=== PATIENT | female | born 1975 | race Caucasian/White ===

== ENCOUNTER 2020-09-03 19:18 | Inpatient (IN) ==
[2020-09-03] MEDS ORDERED: carBAMazepine 200 MG TABLET PO SCH ×2 (20:45→21:00)
[2020-09-03 20:51] LABS: Appearance Urine Clear (Clear); Bacteria Urine Automated Negative (Negative); Bilirubin Urine Negative (Negative); Blood Urine Trace (Negative); Cast Urine Automated 0 /lpf (0-5); Color Urine Yellow; Epithelial Cell Urine Auto >30 /lpf (0-5); Glucose Urine UA Negative (Negative); Ketones Urine Trace (Negative); Leukocyte Esterase Urine 1+ (Negative); Nitrite Urine Negative (Negative); Protein Urine Negative (Negative); RBC Urine Automated 0-4 /hpf (0-4); Urobilinogen Urine Negative (Negative)
[2020-09-03 20:51] LABS: Basophils # (auto) 0.02 K/uL (0-0.2); Basophils % (auto) 0.4 %; Hematocrit (blood only) 39.6 % (37-47); Immature Granulocytes # (auto) 0.01 K/uL (0.00-0.02); Immature Granulocytes % (auto) 0.2 %; Lymphocytes # (auto) 1.85 K/uL (1.2-3.4); Lymphocytes % (auto) 36.8 %; Mean Corpuscular Hgb Conc 35.4 g/dL (32-36); Mean Corpuscular Volume 90.4 fL (80-100); Mean Platelet Volume 10.2 fL (7.4-10.4); Monocytes # (auto) 0.49 K/uL (0.11-0.59); Monocytes % (auto) 9.7 %; Neutrophils # (auto) 2.56 K/uL (1.4-6.5); Neutrophils % (auto) 50.9 %; Platelet Count 311 K/uL (130-400); RDW Coefficient of Variation 12.6 % (11.5-14.5); RDW Standard Deviation 42.2 fL (36.4-46.3); Red Blood Count 4.38 M/uL (4.2-5.4); White Blood Count 5.03 K/uL (4.8-10.8)
[2020-09-03] MEDS ORDERED: tiZANidine HCL 4 MG TABLET PO SCH (21:00)
[2020-09-03] MEDS: CITALOPRAM 40 MG TAB PO SCH (21:04)
[2020-09-03] MEDS: BACLOFEN 10 MG TAB PO SCH (21:04)
[2020-09-03 21:07] LABS: Albumin Level 4.5 gm/dl (3.4-5.0); BUN Creatinine Ratio 15.6 (10-20); Calcium 8.6 mg/dl (8.5-10.1); Creatinine Clr Calc Pharmacy 97.7 ml/min; Est GFR (African American) 126.4; Est GFR (Non-African American) 109.1; Potassium 3.7 mmol/L (3.5-5.1)
[2020-09-03 21:09] LABS: Acetaminophen < 2 ug/ml (10-30); Salicylate < 1.7 mg/dl (2.8-20)
[2020-09-03 21:09] LABS: Amphetamines+Metham, Urine Neg (Neg); Barbiturates, Urine Neg (Neg); Benzodiazepine, Urine Neg (Neg); Cocaine, Urine Neg (Neg); MDMA (Ecstacy), Urine Neg (Neg); Methadone, Urine Neg (Neg); Opiate, Urine Neg (Neg); Phencyclidine, Urine Neg (Neg)
[2020-09-03 21:17] LABS: Albumin Globulin Ratio 1.4 (0.9-2); Bilirubin,Total 0.3 mg/dl (0.2-1); Globulin 3.1 gm/dl (2.5-4.0); Thyroid Stimulating Hormone 1.66 uIu/ml (0.300-4.500); Total Protein 7.6 gm/dl (6.4-8.2)
[2020-09-03] MEDS ORDERED: carBAMazepine 200 MG TABLET PO ONE (21:21)
[2020-09-03 21:23] LABS: Pregnancy Test, Serum Negative (Negative)
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
[2020-09-03 23:32] LABS: Influenza A virus by PCR Negative (Neg); Influenza B virus by PCR Negative (Neg); RSV by PCR Negative (Neg); SARS CoV2 RNA(COVID-19) InHosp NEGATIVE (Negative)
[2020-09-04] MEDS: BACLOFEN 10 MG TAB PO SCH ×2 (05:22→20:32)
--- NOTE | 2020-09-04 08:38 | Emergency Department Note ---
ED Visit Note Patient signed out to me at change of shift by Dr. Nava. Patient with anxiety, paranoia, and delusions. Patient here voluntarily. Patient denies SI and HI. Please see his note for additional details. Patient does have a history of MS. Referrals have been made, disposition is pending. Patient signed out to Dr. Bloom in the morning. .
[2020-09-04] MEDS ORDERED: MULTIVITAMIN TAB PO SCH (09:00)
[2020-09-04] MEDS ORDERED: CYANOCOBALAMIN (VITAMIN B-12) 100 MCG TABLET PO SCH (09:00)
[2020-09-04] MEDS ORDERED: CHOLECALCIFEROL 1,000 UNITS 25 MCG TAB PO SCH (09:00)
[2020-09-04] MEDS ORDERED: NON-FORMULARY MEDICATION (Cholecalciferol (Vitamin D3) [Vitamin D3] 25 mcg (1,000 unit) Ta PO SCH (09:00)
[2020-09-04] MEDS ORDERED: NON-FORMULARY MEDICATION (Cyanocobalamin (Vitamin B-12) [Vitamin B-12] 50 mcg Tablet) PO SCH (09:00)
[2020-09-04] MEDS ORDERED: carBAMazepine 200 MG TABLET PO SCH ×3 (09:00→21:00)
[2020-09-04] MEDS: CITALOPRAM 40 MG TAB PO SCH (11:44)
--- NOTE | 2020-09-04 14:35 | Emergency Department Note ---
ED Visit Note I received this patient in signout at the change of shift from Dr. Ceballos, pending final disposition. The patient is currently voluntary for admission due to anxiety, paranoia and delusions. She does have a history of MS. Several referrals are pending. The case has been signed out at the change of shift to Dr. Michel awaiting final disposition. .
--- NOTE | 2020-09-04 14:39 | Emergency Department Note ---
ED Visit Note Did receive signout from Dr. Bloom patient is pending [facility] review. Patient does have a history of MS, anxiety and paranoia with no SI or HI. Patient was ordered home dose baclofen did receive first dose of methylprednisolone. Patient was accepted to [facility] for inpatient psychiatric treatment. .
[2020-09-04] MEDS ORDERED: BACLOFEN 10 MG TAB PO STA (16:10)
[2020-09-04] MEDS: MOUTHWASH PO SCH ×2 (16:16)
[2020-09-04] MEDS ORDERED: hydrOXYzine HCl 25 MG TAB PO PRN ×2 (16:32)
[2020-09-04] MEDS ORDERED: ALUMINUM/MAGNESIUM SUSP 30 ML UDC PO PRN (16:32)
[2020-09-04] MEDS ORDERED: BISMUTH SUBSALICYLATE LIQD 236 ML PO PRN (16:32)
[2020-09-04] MEDS ORDERED: ACETAMINOPHEN 325 MG TAB PO PRN (16:32)
[2020-09-04] MEDS ORDERED: MAGNESIUM HYDROXIDE SUSP 30 ML UDC PO PRN (16:32)
[2020-09-04] MEDS ORDERED: SODIUM CHLORIDE 0.65% NA SOLN 45 ML (OCEAN) PRN (16:32)
[2020-09-04] MEDS ORDERED: MOUTHWASH PO SCH (17:00)
[2020-09-04] MEDS: carBAMazepine 200 MG TABLET PO SCH (19:47)
[2020-09-04] MEDS: CITALOPRAM 20 MG TAB PO SCH (20:31)
[2020-09-04] MEDS: tiZANidine HCL 4 MG TABLET PO SCH (20:33)
[2020-09-04] MEDS: BENZOCAINE 20% (ORAJEL) 11.9 GM TUBE MT PRN (20:35)
[2020-09-04] MEDS: Magic Swizzle w/Glycerin 240mL MT SCH (20:46)
[2020-09-05] MEDS: BENZOCAINE 20% (ORAJEL) 11.9 GM TUBE MT PRN ×2 (06:50→14:06)
[2020-09-05] MEDS: carBAMazepine 200 MG TABLET PO SCH ×3 (07:47→17:28)
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
[2020-09-05] MEDS: BACLOFEN 10 MG TAB PO SCH ×3 (07:51→19:55)
[2020-09-05] MEDS: CITALOPRAM 20 MG TAB PO SCH ×2 (07:51→19:55)
[2020-09-05] MEDS: CYANOCOBALAMIN (VITAMIN B-12) 100 MCG TABLET PO SCH (07:52)
[2020-09-05] MEDS: MULTIVITAMIN TAB PO SCH (07:52)
[2020-09-05] MEDS: CHOLECALCIFEROL 1,000 UNITS 25 MCG TAB PO SCH (07:53)
[2020-09-05] MEDS: Magic Swizzle w/Glycerin 240mL MT SCH ×4 (07:56→19:56)
[2020-09-05] MEDS: LIDOCAINE VISCOUS 2% 100ML MT PRN (17:23)
[2020-09-05] MEDS: tiZANidine HCL 4 MG TABLET PO SCH (19:54)
[2020-09-06] MEDS: LIDOCAINE VISCOUS 2% 100ML MT PRN (06:02)
[2020-09-06] MEDS: BACLOFEN 10 MG TAB PO SCH ×2 (07:32→12:08)
[2020-09-06] MEDS: CITALOPRAM 20 MG TAB PO SCH (07:32)
[2020-09-06] MEDS: MULTIVITAMIN TAB PO SCH (07:32)
[2020-09-06] MEDS: CYANOCOBALAMIN (VITAMIN B-12) 100 MCG TABLET PO SCH (07:33)
[2020-09-06] MEDS: carBAMazepine 200 MG TABLET PO SCH ×2 (07:33→12:08)
[2020-09-06] MEDS: CHOLECALCIFEROL 1,000 UNITS 25 MCG TAB PO SCH (07:35)
[2020-09-06] MEDS: Magic Swizzle w/Glycerin 240mL MT SCH ×2 (08:08→12:58)
--- NOTE | 2020-09-06 09:18 | Communication Note ---
Date of Service: September 06, [address] Gomez and reviewed patient's history, worsening paranoia for the past year. He has been encouraging a trial of atypical antipsychotic but she has been resistant to that. He agreed with trial of aripiprazole which was briefly discussed with the patient yesterday. He had also been recommending therapy which patient recently started.
--- NOTE | 2020-09-06 13:26 | Discharge Summary ---
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 [facility] for emergencies At any time you feel your situation is an emergency, you may also call 911 immediately. Pending Studies at Discharge: No Stand-Alone Forms: My [facility], Smoking Cessation Medications and DC Order Prescriptions: Continued citalopram [Celexa] 40 mg tablet 20 mg PO BID RF: 0 carbamazepine [Tegretol] 200 mg Tablet 400 mg PO QAM RF: 0 baclofen 10 mg Tablet 10 mg PO TID RF: 0 multivitamin Tablet 1 tab PO QAM RF: 0 Vitamin B-12 50 mcg Tablet 50 mcg PO DAILY RF: 0 tizanidine 2 mg Tablet 2 mg PO HS RF: 0 carbamazepine 200 mg Tablet 200 mg PO .QAFTERNOON RF: 0 carbamazepine 200 mg Tablet 600 mg PO HS RF: 0 cholecalciferol (vitamin D3) [Vitamin D3] 25 mcg (1,000 unit) Tablet 2,000 unit PO DAILY RF: 0 Ocrevus 30 mg/mL Solution See Rx Instructions .ROUTE .COMPLEX RF: 0 First Mouthwash Solution 30 ml PO QID RF: 0 Viscous-Lidocaine 2% Solution 15 ml PO DIRECTED PRN (Reason: MOUTH SORES) RF: 0 Discharge Orders: Discharge Order (Routine); Ordered 09/06/20 Ordered By: Henrique Cordova Admission Data Admit Date/Time: 09/04/20 16:32 Attending Provider: Chelita Wilson Admit Provider: Chelita Wilson Primary Care Provider: Lore Lino Other Interventions: Discharge Summary Assessment (RN) Last Done: 09/06/20 12:41 PSY Interdisciplinary Discharge Planning Last Done: 09/06/20 12:43 [place] [address] D/C day mgmt > 30 min Patient Type Established Medical Decision Making Moderate Complexity Diagnoses Paranoid delusion F22 Depression F32.9 Multiple sclerosis G35 Time Spent (min) 75
== END 2020-09-06 13:18 | disposition home or self-care (01) | DRG 885 ==
LOC: ED 19:18 → 3S 09-04 16:32